=== PATIENT | female | born 1990 | race Caucasian/White ===

== ENCOUNTER 2021-04-25 18:30 | Emergency (ER) | payer SELFPAY ==
[2021-04-25] MEDS ORDERED: Clindamycin 150 MG CAP ONE (19:02)
== END 2021-04-25 19:40 | disposition home or self-care (01) ==
LOC: MADERS 18:30
DX: L02.411 Cutaneous abscess of right axilla (principal); L03.111 Cellulitis of right axilla
CPT/HCPCS: 87070; 87077; 87186; 87205; 99283

== ENCOUNTER 2021-08-31 12:51 | Emergency (ER) | payer SELFPAY ==
[2021-08-31] MEDS ORDERED: Cephalexin 500 MG CAP ONE (13:39)
[2021-08-31] MEDS ORDERED: Ibuprofen 800 MG TAB ONE (13:39)
== END 2021-08-31 13:40 | disposition home or self-care (01) ==
LOC: MADERS 12:51
DX: L03.112 Cellulitis of left axilla (principal)
CPT/HCPCS: 99283